=== PATIENT | male | born 1965 | race Caucasian/White ===

== ENCOUNTER 2019-01-13 12:33 | Observation (INO) | payer BC ==
[~2019-01-13] VITALS: Ht 165.1 cm; Wt 90.0 kg
[2019-01-13] MEDS ORDERED: morphine 4 MG/ML VIAL IV STA (12:50)
[2019-01-13] MEDS ORDERED: SOD CHLORIDE 0.9% 500 ML IV STA (12:50)
--- NOTE | 2019-01-13 12:58 | ERD ---
ER Documentation Chief Complaint Chief Complaint LOWER ABD PAIN X 2 DAYS. ABD FIRM DISTENDED. HPI 53-year-old male presenting with complaints of severe rectal pain in addition to lower abdominal pain. He states that he has been constipated for the past 2 days. 2 days ago he started treatment with a medication named Creon due to " problems with his intestines". Per his daughter, he usually has diarrhea. He states he has a pressure-like, bloating pain in his abdomen. However he has a throbbing pain in his rectum. His daughter gave him multiple laxatives today including magnesium citrate, Dulcolax, and bisacodyl with only worsening of his symptoms. Patient's pain is a 10 out of 10 at this time. He denies any rectal bleeding. No fevers or chills. No nausea, vomiting, chest pain, shortness of breath. ROS All systems reviewed and are negative except as per history of present illness. Medications Home Meds Reported Medications Vitamin B Complex* (Vitamin B Complex*) 1 Each Tablet, 1 TAB PO DAILY, TAB 01/13/19 Clopidogrel Bisulfate (Clopidogrel) 75 Mg Tablet, 75 MG PO DAILY, #30 TAB 01/13/19 Niacin (Niacin* ER) 500 Mg Tab.er.24h, 500 MG PO DAILY, TAB.SA 01/13/19 Carvedilol* (Carvedilol*) 6.25 Mg Tablet, 6.25 MG PO BID, #60 TAB 01/13/19 Ramipril (Ramipril) 2.5 Mg Capsule, 2.5 MG PO DAILY, CAP 01/13/19 Gemfibrozil* (Gemfibrozil*) 600 Mg Tablet, 600 MG PO BID, TAB 01/13/19 Folic Acid* (Folic Acid*) 1 Mg Tablet, 1 MG PO DAILY, TAB 01/13/19 Cyanocobalamin* (Vitamin B12*) 500 Mcg Tab, 500 MCG PO DAILY, TAB 01/13/19 Terazosin Hcl* (Terazosin Hcl*) 5 Mg Capsule, 5 MG PO HS, CAP 01/13/19 Evolocumab (Repatha Sureclick) 140 Mg/1 Ml Pen.injctr, 140 MG SQ EVERY TWO WEEKS DUE ON JANUARY 16-01/13/19 Icosapent Ethyl (VASCEPA) 1 Gm Capsule, 2 GM PO BID, CAP 01/13/19 Zqsqwz-Smabwjjq-Zxzvmro* (Creon * 24,000) 24,000 L-76,000-120,000 Unit Capsule., 1 CAP PO WITH MEALS, CAP 01/13/19 Discontinued Reported Medications Ergocalciferol (Vitamin D2) (VITAMIN D2) 50,000 Unit Capsule, 42730 UNIT PO ONCE A WEEK, CAP 01/13/19 Allergies Allergies: Coded Allergies: No Known Allergy (Unverified , 01/13/19) PMhx/Soc Hx Cardiac Disorders: Yes (Hypertension, CAD, [place]) Hx Miscellaneous Medical Probl: Yes Hx Alcohol Use: Yes Hx Substance Use: No Hx Tobacco Use: No Smoking Status: Former smoker FmHx Family History: No diabetes Physical Exam Vitals Vital Signs Date Temp Pulse Resp B/P (MAP) Pulse Ox O2 O2 Flow FiO2 Time Delivery Rate 01/13/19 97.7 68 18 114/81 Room Air 18:30 (92) 01/13/19 77 17 118/81 99 Room Air 17:37 (93) 01/13/19 98.2 78 16 134/86 99 12:42 (102) Physical Exam Const: No acute distress Head: Atraumatic Eyes: Normal Conjunctiva ENT: Normal External Ears, Nose and Mouth. Neck: Full range of motion. No meningismus. Resp: Clear to auscultation bilaterally Cardio: Regular rate and rhythm, no murmurs Abd: Soft, distended, mild left lower quadrant tenderness to deep palpation. No rebound or guarding. Hypoactive bowel sounds Rectal: No external hemorrhoids seen. No rectal bleeding. Unable to complete rectal exam secondary to severe rectal pain. No erythema or discharge noted. Brown stool in rectal vault. No palpable masses but exam was limited. Skin: No petechiae or rashes Back: No midline or flank tenderness Ext: No cyanosis, or edema Neur: Awake and alert Psych: Normal Mood and Affect Result Diagram: 01/13/19 1245 01/13/19 1245 Results 24 hrs Laboratory Tests Test 01/13/19 12:45 White Blood Count 12.9 10^3/ul Red Blood Count 5.08 10^6/ul Hemoglobin 16.7 g/dl Hematocrit 44.7 % Mean Corpuscular Volume 88.3 fl Mean Corpuscular Hemoglobin 33.0 pg Mean Corpuscular Hemoglobin Concent 37.4 g/dl Red Cell Distribution Width 11.5 % Platelet Count 203 10^3/UL Mean Platelet Volume 9.2 fl Immature Granulocytes % 0.500 % Neutrophils % 80.5 % Lymphocytes % 12.5 % Monocytes % 5.7 % Eosinophils % 0.5 % Basophils % 0.3 % Nucleated Red Blood Cells % 0.0 /100WBC Immature Granulocytes # 0.060 10^3/ul Neutrophils # 10.4 10^3/ul Lymphocytes # 1.6 10^3/ul Monocytes # 0.7 10^3/ul Eosinophils # 0.1 10^3/ul Basophils # 0.0 10^3/ul Nucleated Red Blood Cells # 0.0 10^3/ul Urine Color STRAW Urine Clarity CLEAR Urine pH 5.0 Urine Specific [place] 1.004 Urine Ketones NEGATIVE mg/dL Urine Nitrite NEGATIVE mg/dL Urine Bilirubin NEGATIVE mg/dL Urine Urobilinogen NEGATIVE mg/dL Urine Leukocyte Esterase NEGATIVE Radha/ul Urine Microscopic RBC 0 /HPF Urine Microscopic WBC 1 /HPF Urine Hemoglobin 1+ mg/dL Urine Glucose NEGATIVE mg/dL Urine Total Protein NEGATIVE mg/dl Sodium Level 137 mmol/L Potassium Level 3.8 mmol/L Chloride Level 103 mmol/L Carbon Dioxide Level 19 mmol/L Anion Gap 15 Blood Urea Nitrogen 10 mg/dl Creatinine 0.66 mg/dl Est Glomerular Filtrat Rate mL/min > 60 mL/min Glucose Level 142 mg/dl Calcium Level 9.9 mg/dl Total Bilirubin 0.9 mg/dl Direct Bilirubin 0.00 mg/dl Indirect Bilirubin 0.9 mg/dl Aspartate Amino Transf (AST/SGOT) 39 IU/L Alanine Aminotransferase (ALT/SGPT) 38 IU/L Alkaline Phosphatase 89 IU/L Total Protein 7.8 g/dl Albumin 4.6 g/dl Globulin 3.20 g/dl Albumin/Globulin Ratio 1.43 Current Medications Medications Dose Sig/Karl Start Time Status Last (Trade) Ordered Route PRN Stop Time Admin Dose Reason Admin Sodium 500 ml @ Q1H STAT 01/13/19 DC 01/13/19 Chloride 500 mls/hr IV 12:50 13:15 01/13/19 13:49 Morphine 6 mg ONCE STAT 01/13/19 DC 01/13/19 Sulfate IV 12:50 13:15 (morphine) 01/13/19 12:52 Ketorolac 15 mg ONCE STAT 01/13/19 DC 01/13/19 Tromethamine IV 13:34 13:39 (Toradol) 01/13/19 13:35 0.5 mg ONCE STAT 01/13/19 DC 01/13/19 Hydromorphone IV 13:34 13:39 HCl 01/13/19 13:35 (Dilaudid) Sodium 133 ml ONCE ONCE 01/13/19 DC 01/13/19 Biphosphate/ DC 15:30 15:24 Sodium 01/13/19 15:31 Phosphate (Fleet Enema) Lactulose 20 gm ONCE ONCE 01/13/19 DC 01/13/19 (Enulose) PO 17:30 17:36 01/13/19 17:31 Ondansetron 4 mg BRIDGE ORDER 01/13/19 HCl (Zofran PRN IV 19:00 Inj) NAUSEA/VOMITI 01/14/19 18:59 NG 650 mg ER BRIDGE 01/13/19 Acetaminophen PRN PO 19:00 (Tylenol .MILD PAIN 01/14/19 18:59 Tab) 1-3 OR TEMP IV Flush 3 ml PER 01/13/19 (NS 3 ml) PROTOCOL IV 19:00 Ondansetron 4 mg Q6H PRN 01/13/19 HCl (Zofran IV 19:00 Inj) NAUSEA/VOMITI NG 650 mg Q6H PRN 01/13/19 Acetaminophen PO .PAIN 1-3 19:00 (Tylenol OR TEMP Tab) 1 tab Q6H PRN 01/13/19 Acetaminophen PO .MOD PAIN 19:00 / 4-6 Hydrocodone Bitart ([place] (5/325)) Morphine 2 mg Q4H PRN 01/13/19 Sulfate IV .SEVERE 19:00 (morphine) PAIN 7-10 Docusate 100 mg Q12H PRN 01/13/19 Sodium PO 19:00 (Colace) .CONSTIPATION Magnesium 30 ml DAILY PRN 01/13/19 Hydroxide PO 19:00 (Milk Of Mag) .CONSTIPATION 40 mg DAILY@06 01/14/19 DC Pantoprazole IV 06:00 (Protonix 01/14/19 06:00 Iv) Sodium 1,000 ml @ [id number] IV 01/13/19 Chloride 75 mls/hr 18:57 Lorazepam 0.5 mg Q6H PRN 7/16/19 (Ativan) IV ANXIETY 19:00 Albuterol/ 3 ml Q4H RESP 01/13/19 Ipratropium THERAPY PRN 19:00 (Duoneb) HHN SHORTNESS OF BREATH Hydralazine 10 mg Q6H PRN 01/13/19 HCl IV ELEVATED 19:00 (Apresoline) BLOOD PRESSURE 1 tab Q5M PRN 01/13/19 Nitroglycerin SL ANGINA 19:00 (Nitroglyceri n (Sl Tab) 0.4 Mg) Famotidine 20 mg BID IV 01/13/19 (Pepcid Iv) 21:00 Procedures/MDM EMERGENT LABS AND DIAGNOSTIC STUDIES: Lab Results above were reviewed and interpreted by me. CBC: mild leukocytosis without left shift, likely stress response CMP: No evidence of clinically significant electrolyte abnormality, acidosis, renal failure, hypoglycemia, liver disease, or biliary obstruction Radiology Results as interpreted by Radiology below were reviewed by Angela Espino MD: CT abdomen and pelvis shows no acute abnormalities Initial Nursing notes reviewed. Previous Medical Records requested via the Electronic Health Record. EMERGENCY DEPARTMENT COURSE / MEDICAL DECISION MAKING: Patient is presenting with abdominal bloating, constipation, and rectal pain. Differential includes but is not limited to diverticulitis, proctitis, perianal abscess, bowel obstruction, colitis. Low suspicion for dissection or ischemic bowel. CT did not show any significant abnormalities. Labs also did not show any significant abnormalities. I suspect his constipation secondary to the new medication he has started, Creon. Patient was treated with a rectal enema without any relief. He did require multiple doses of narcotics for pain control. At this time, he does not feel well enough to go home. Patient will be admitted for intractable pain. Admitting doctor: Dr. Thorne Departure Diagnosis: Primary Impression: Abdominal pain Abdominal location: lower abdomen, unspecified Qualified Codes: R10.30 - Lower abdominal pain, unspecified Additional Impressions: Constipation Constipation type: unspecified constipation type Qualified Codes: K59.00 - Constipation, unspecified Rectal or anal pain Condition: Fair ELLEN ESPINO MD Jan 13, 2019 12:58
[2019-01-13] MEDS ORDERED: LIPA1CAP6 PO (13:28)
[2019-01-13] MEDS ORDERED: ICOS1CAP PO (13:30)
[2019-01-13] MEDS ORDERED: EVOL140P SQ (13:33)
[2019-01-13] MEDS ORDERED: TERA5CAP3 PO (13:33)
[2019-01-13] MEDS ORDERED: KETOROLAC 15 MG INJ IV STA (13:34)
[2019-01-13] MEDS ORDERED: HYDROmorphONE 0.5 MG/0.5 ML SYG IV STA (13:34)
[2019-01-13] MEDS ORDERED: ERGO500013 PO (13:37)
[2019-01-13] MEDS ORDERED: GEMF600T8 PO (13:38)
[2019-01-13] MEDS ORDERED: CYAN500T46 PO (13:38)
[2019-01-13] MEDS ORDERED: FOLI-49 PO (13:38)
[2019-01-13] MEDS ORDERED: NIAC500T92 PO (13:39)
[2019-01-13] MEDS ORDERED: RAMI2.5C36 PO (13:39)
[2019-01-13] MEDS ORDERED: CARV6.2579 PO (13:39)
[2019-01-13] MEDS ORDERED: CLOP75TA27 PO (13:40)
[2019-01-13] MEDS ORDERED: VIT1TABL46 PO (13:40)
[2019-01-13] MEDS ORDERED: NA PHOSPHATE/BIPHOS 133 ML ENEMA PR ONE (15:30)
[2019-01-13] MEDS ORDERED: LACTULOSE 30ML CUP PO ONE (17:30)
[2019-01-13] MEDS ORDERED: NITROGLYCERIN (SL) 0.4 MG TAB SL PRN (19:00)
[2019-01-13] MEDS ORDERED: ACETAMINOPHEN 325 MG TAB PO PRN ×2 (19:00)
[2019-01-13] MEDS ORDERED: ONDANSETRON 4 MG INJ IV PRN ×2 (19:00)
[2019-01-13] MEDS ORDERED: hydrALAzine 20 MG INJ IV PRN (19:00)
[2019-01-13] MEDS ORDERED: morphine 2 MG INJ IV PRN (19:00)
[2019-01-13] MEDS ORDERED: ALBUTEROL/IPRATROPIUM (NEB) 3 ML AMP HHN PRN (19:00)
[2019-01-13] MEDS ORDERED: LORAZEPAM 2 MG INJ IV PRN (19:00)
[2019-01-13] MEDS ORDERED: DOCUSATE SODIUM 100 MG CAP PO PRN (19:00)
[2019-01-13] MEDS ORDERED: MAGNESIUM HYDROXIDE 30ML CUP PO PRN (19:00)
[2019-01-13] MEDS ORDERED: NACL 0.9% 3 ML SYG IV SCH (19:00)
[2019-01-13] MEDS ORDERED: HYDROCODONE/APAP (5/325) TAB PO PRN (19:00)
[2019-01-13 21:19] VITALS: BP 132/84; PULSE 66; RESP 16
[2019-01-13] MEDS: FAMOTIDINE 20 MG INJ IV SCH (21:25)
[2019-01-13] MEDS: SOD CHLORIDE 0.45% 1,000 ML IV SCH (21:31)
[2019-01-13 22:20] VITALS: Ht 165.1 cm; Wt 90.0 kg
[2019-01-14 03:05] VITALS: BP 107/67; PULSE 62; RESP 16
[2019-01-14] MEDS ORDERED: PANTOPRAZOLE 40 MG INJ IV SCH (06:00)
--- NOTE | 2019-01-14 07:10 | HP ---
Date/Time of Note Date/Time of Note DATE: 01/13/19 TIME: 22:00 Assessment/Plan Lines/Catheters IV Catheter Type (from Nrsg): Peripheral IV Assessment/Plan Assessment/Plan 1. Abdominal pain/rectal pain: Likely secondary to constipation -Bowel regimen -Pain meds as needed 2. History of CAD/GA: Continue home meds 3. Hypertension: Continue home BP meds, adjust as needed 4. Possible history of pancreatitis: Patient was started on Creon 2 days ago Result Diagram: 01/14/19 0547 01/13/19 1245 Results 24hrs Laboratory Tests Test 01/13/19 12:45 01/13/19 20:34 01/14/19 05:47 White Blood Count 12.9 H 8.0 # Red Blood Count 5.08 4.75 Hemoglobin 16.7 15.6 Hematocrit 44.7 43.5 Mean Corpuscular Volume 88.3 91.6 Mean Corpuscular Hemoglobin 33.0 32.8 Mean Corpuscular Hemoglobin Concent 37.4 H 35.9 Red Cell Distribution Width 11.5 11.9 Platelet Count 203 170 Mean Platelet Volume 9.2 9.2 Immature Granulocytes % 0.500 H 0.400 Neutrophils % 80.5 H 68.8 Lymphocytes % 12.5 L 20.5 Monocytes % 5.7 7.7 Eosinophils % 0.5 2.0 Basophils % 0.3 0.6 Nucleated Red Blood Cells % 0.0 0.0 Immature Granulocytes # 0.060 H 0.030 Neutrophils # 10.4 H 5.5 Lymphocytes # 1.6 1.7 Monocytes # 0.7 0.6 Eosinophils # 0.1 0.2 Basophils # 0.0 0.1 Nucleated Red Blood Cells # 0.0 0.0 Urine Color STRAW Urine Clarity CLEAR Urine pH 5.0 Urine Specific [place] 1.004 Urine Ketones NEGATIVE Urine Nitrite NEGATIVE Urine Bilirubin NEGATIVE Urine Urobilinogen NEGATIVE Urine Leukocyte Esterase NEGATIVE Urine Microscopic RBC 0 Urine Microscopic WBC 1 Urine Hemoglobin 1+ H Urine Glucose NEGATIVE Urine Total Protein NEGATIVE Sodium Level 137 Potassium Level 3.8 Chloride Level 103 Carbon Dioxide Level 19 L Anion Gap 15 H Blood Urea Nitrogen 10 Creatinine 0.66 Est Glomerular Filtrat Rate mL/min > 60 Glucose Level 142 Calcium Level 9.9 Total Bilirubin 0.9 Direct Bilirubin 0.00 Indirect Bilirubin 0.9 Aspartate Amino Transf (AST/SGOT) 39 Alanine Aminotransferase (ALT/SGPT) 38 Alkaline Phosphatase 89 Total Protein 7.8 Albumin 4.6 Globulin 3.20 Albumin/Globulin Ratio 1.43 Free Thyroxine 1.26 Prothrombin Time 12.8 Prothrombin Time Ratio 1.0 INR International Normalized Ratio 0.95 Activated Partial Thromboplast Time 30.3 HPI/ROS Admit Date/Time Admit Date/Time Jan 13, 2019 at 21:03 Hx of Present Illness Patient is a 53-year-old male with a history of CAD, dyslipidemia, hypertension, possible pancreatitis who presents the ER complaining of abdominal pain, rectal pain and constipation. Symptoms been going on for the past 2 days. He said he was started on Creon 2 days ago and since then has been constipated. Patient usually have loose stools. CT abdomen/pelvis shows no acute findings like appendicitis, cholecystitis or diverticulitis. Seen however is a fecal filled colon without evidence of bowel obstruction or inflammation. Nonobstructing left kidney stone was also noted PMH/Family/Social Past Medical History Medications Current Medications Ondansetron HCl (Zofran Inj) 4 mg BRIDGE ORDER PRN IV NAUSEA/VOMITING; Start 01/13/19 at 19:00; Stop 01/14/19 at 18:59 Acetaminophen (Tylenol Tab) 650 mg ER BRIDGE PRN PO .MILD PAIN 1-3 OR TEMP; Start 01/13/19 at 19:00; Stop 01/14/19 at 18:59 IV Flush (NS 3 ml) 3 ml PER PROTOCOL IV ; Start 01/13/19 at 19:00 Ondansetron HCl (Zofran Inj) 4 mg Q6H PRN IV NAUSEA/VOMITING; Start 01/13/19 at 19:00 Acetaminophen (Tylenol Tab) 650 mg Q6H PRN PO .PAIN 1-3 OR TEMP Last a dministered on 01/14/19at 00:09; Admin Dose 650 MG; Start 01/13/19 at 19:00 Acetaminophen/ Hydrocodone Bitart ([place] (5/325)) 1 tab Q6H PRN PO .MOD PAIN 4- 6 Last administered on 01/13/19at 21:25; Admin Dose 1 TAB; Start 01/13/19 at 19:00 Morphine Sulfate (morphine) 2 mg Q4H PRN IV .SEVERE PAIN 7-10; Start 01/13/19 at 19:00 Docusate Sodium (Colace) 100 mg Q12H PRN PO .CONSTIPATION; Start 01/13/19 at 19:00 Magnesium Hydroxide (Milk Of Mag) 30 ml DAILY PRN PO .CONSTIPATION; Start 01/13/19 at 19:00 Sodium Chloride 1,000 ml @ 75 mls/hr [id number] IV Last administered on 01/13/19at 21:31; Admin Dose 75 MLS/HR; Start 01/13/19 at 18:57 Lorazepam (Ativan) 0.5 mg Q6H PRN IV ANXIETY; Start 01/13/19 at 19:00 Albuterol/ Ipratropium (Duoneb) 3 ml Q4H RESP THERAPY PRN HHN SHORTNESS OF BREATH; Start 01/13/19 at 19:00 Hydralazine HCl (Apresoline) 10 mg Q6H PRN IV ELEVATED BLOOD PRESSURE; Start 01/13/19 at 19:00 Nitroglycerin (Nitroglycerin (Sl Tab) 0.4 Mg) 1 tab Q5M PRN SL ANGINA; Start 01/13/19 at 19:00 Famotidine (Pepcid Iv) 20 mg BID IV Last administered on 01/13/19at 21:25; Admin Dose 20 MG; Start 01/13/19 at 21:00 Coded Allergies: No Known Allergy (Unverified , 01/13/19) Social History Smoking Status: Never smoker Exam/Review of Systems Vital Signs Vitals Vital Signs Date Temp Pulse Resp B/P (MAP) Pulse Ox O2 O2 Flow FiO2 Time Delivery Rate 01/14/19 98.1 62 16 107/67 96 03:05 (80) 01/13/19 Room Air 20:58 Intake and Output 01/13/19 01/13/19 01/14/19 1515:00 23:00 07:00 IntakeIntake Total 560 ml BalanceBalance 560 ml AMARA ESCOBEDO MD Jan 14, 2019 07:10
[2019-01-14 07:42] VITALS: BP 112/72; PULSE 63; RESP 16
[2019-01-14] MEDS: FAMOTIDINE 20 MG INJ IV SCH (08:05)
[2019-01-14] MEDS: SOD CHLORIDE 0.45% 1,000 ML IV SCH ×2 (08:06→11:08)
--- NOTE | 2019-01-14 10:15 | CONS ---
Assessment/Plan Assessment/Plan Hospital Course (Demo Recall) Summary Assessment and Plan: Assessment: Rectal pain- likely 2/2 to constipation- improved after BM Dyslipidemia- on multiple medication at home HTN H/o [place] Query h/o pancreatis- recently started on Creon TID History of colonoscopy 2 years ago Plan: Start MiraLAX p.o. BID- continue MiraLAx after discharge after discharge Colonoscopy offered- pt declined- pt states he wants to go home today Advance diet as tolerated D/c planning per hospitalist- Pt to f/u with his GI after discharge- consider reducing Creon vs stopping- re-evaluate need for repeat colonoscopy Patient seen in collaboration with Dr. Cortes CC: LEENA CORTES MD ; Consultation Date/Type/Reason Admit Date/Time Jan 13, 2019 at 21:03 Date of Consultation: Jan 14, 2019 Type of Consult Gastroenterology Reason for Consultation Rectal pain, constipation Date/Time of Note DATE: 01/14/19 TIME: 10:05 Hx of Present Illness This is a 53-year-old male with past medical history of hypertension, [place], severe dyslipidemia, questionable history of pancreatitis who was recently started on Creon and subsequently developed severe constipation. Patient began to complain of rectal pain three days after started Creon TID, which became progressively worse, he presented to the ED for evaluation. Initial work-up showed mild leukocytosis of 12.9 has resolved today normal hemoglobin/hematocrit, normal INR normal LFTs with significant elevated triglycerides of 874, cholesterol is 211, HDL 26. Patient states his triglyceride levels actually much improved with previous levels were noted to be closer to 4000 he is on several medications to help bring down triglyceride. Additionally imaging was obtained a CT abdomen pelvis without contrast reveals fecal filled colon. No evidence of bowel obstruction or inflammation. There is no appendicitis. There is diverticulosis without diverticulitis, atherosclerotic disease is present, there is a nonobstructing left mid kidney renal stone, enlarged prostate. He was recently started on Creon about 3 days ago and states since then he has not been able to have a bowel movement. His baseline is normally loose stools. He previously had an colonoscopy about 2 years ago per patient negative. Since hospitalization he was placed on bowel program and had 3 bowel movements this morning he states rectal pain has much improved he feels very well. Review of Systems: A 12 system, review was conducted and is negative except as noted in the HPI or here. Past Medical History Home Meds Reported Medications Vitamin B Complex* (Vitamin B Complex*) 1 Each Tablet, 1 TAB PO DAILY, TAB 01/13/19 Clopidogrel Bisulfate (Clopidogrel) 75 Mg Tablet, 75 MG PO DAILY, #30 TAB 01/13/19 Niacin (Niacin* ER) 500 Mg Tab.er.24h, 500 MG PO DAILY, TAB.SA 01/13/19 Carvedilol* (Carvedilol*) 6.25 Mg Tablet, 6.25 MG PO BID, #60 TAB 01/13/19 Ramipril (Ramipril) 2.5 Mg Capsule, 2.5 MG PO DAILY, CAP 01/13/19 Gemfibrozil* (Gemfibrozil*) 600 Mg Tablet, 600 MG PO BID, TAB 01/13/19 Folic Acid* (Folic Acid*) 1 Mg Tablet, 1 MG PO DAILY, TAB 01/13/19 Cyanocobalamin* (Vitamin B12*) 500 Mcg Tab, 500 MCG PO DAILY, TAB 01/13/19 Terazosin Hcl* (Terazosin Hcl*) 5 Mg Capsule, 5 MG PO HS, CAP 01/13/19 Evolocumab (Repatha Sureclick) 140 Mg/1 Ml Pen.injctr, 140 MG SQ EVERY TWO WEEKS DUE ON JANUARY 16-01/13/19 Icosapent Ethyl (VASCEPA) 1 Gm Capsule, 2 GM PO BID, CAP 01/13/19 Ryudhy-Uvxpknnr-Tjeotxv* (Nilda DR* 24,000) 24,000 L-76,000-120,000 Unit Capsule., 1 CAP PO WITH MEALS, CAP 01/13/19 Discontinued Reported Medications Ergocalciferol (Vitamin D2) (VITAMIN D2) 50,000 Unit Capsule, 44433 UNIT PO ONCE A WEEK, CAP 01/13/19 Medications Current Medications Ondansetron HCl (Zofran Inj) 4 mg BRIDGE ORDER PRN IV NAUSEA/VOMITING; Start 01/13/19 at 19:00; Stop 01/14/19 at 18:59 Acetaminophen (Tylenol Tab) 650 mg ER BRIDGE PRN PO .MILD PAIN 1-3 OR TEMP; Start 01/13/19 at 19:00; Stop 01/14/19 at 18:59 IV Flush (NS 3 ml) 3 ml PER PROTOCOL IV ; Start 01/13/19 at 19:00 Ondansetron HCl (Zofran Inj) 4 mg Q6H PRN IV NAUSEA/VOMITING; Start 01/13/19 at 19:00 Acetaminophen (Tylenol Tab) 650 mg Q6H PRN PO .PAIN 1-3 OR TEMP Last administered on 01/14/19at 00:09; Admin Dose 650 MG; Start 01/13/19 at 19:00 Acetaminophen/ Hydrocodone Bitart ([place] (5/325)) 1 tab Q6H PRN PO .MOD PAIN 4- 6 Last administered on 01/13/19at 21:25; Admin Dose 1 TAB; Start 01/13/19 at 19:00 Morphine Sulfate (morphine) 2 mg Q4H PRN IV .SEVERE PAIN 7-10; Start 01/13/19 at 19:00 Docusate Sodium (Colace) 100 mg Q12H PRN PO .CONSTIPATION; Start 01/13/19 at 19:00 Magnesium Hydroxide (Milk Of Mag) 30 ml DAILY PRN PO .CONSTIPATION; Start 01/13/19 at 19:00 Sodium Chloride 1,000 ml @ 75 mls/hr [id number] IV Last administered on 01/13/19at 21:31; Admin Dose 75 MLS/HR; Start 01/13/19 at 18:57 Lorazepam (Ativan) 0.5 mg Q6H PRN IV ANXIETY; Start 01/13/19 at 19:00 Albuterol/ Ipratropium (Duoneb) 3 ml Q4H RESP THERAPY PRN HHN SHORTNESS OF BREATH; Start 01/13/19 at 19:00 Hydralazine HCl (Apresoline) 10 mg Q6H PRN IV ELEVATED BLOOD PRESSURE; Start 01/13/19 at 19:00 Nitroglycerin (Nitroglycerin (Sl Tab) 0.4 Mg) 1 tab Q5M PRN SL ANGINA; Start 01/13/19 at 19:00 Famotidine (Pepcid Iv) 20 mg BID IV Last administered on 01/14/19at 08:05; Admin Dose 20 MG; Start 01/13/19 at 21:00 Allergies: Coded Allergies: No Known Allergy (Unverified , 01/13/19) Social History Smoking Status: Never smoker Exam/Review of Systems Exam Vitals Vital Signs Date Temp Pulse Resp B/P (MAP) Pulse Ox O2 O2 Flow FiO2 Time Delivery Rate 01/14/19 98.1 63 16 112/72 96 07:42 (85) 01/13/19 Room Air 20:58 Intake and Output 01/13/19 01/13/19 01/14/19 1515:00 23:00 07:00 IntakeIntake Total 560 ml BalanceBalance 560 ml Exam PHYSICAL EXAMINATION: GENERAL: Well developed, well nourished, alert & oriented x 3, in no acute distress SKIN: No lesions HEAD: Normocephalic, atraumatic, no tenderness. EYES: Pupils equal reactive to light and accommodation, full extraocular movements, sclera clear, non-icteric, no discharge. EARS/NOSE AND THROAT: Ears normal, nose normal, oropharynx normal, oral membranes well hydrated without lesions. NECK: Supple, no masses CHEST: Inspection within normal limits. CARDIOVASCULAR: Heart: Regular rate and rhythm RESPIRATORY: Lungs clear to auscultation. GASTROINTESTINAL AND LIVER: Abdomen: Soft, non tenderness, non-distended, no hernias, no masses, no organomegaly, no ascites, no guarding, no rebound tenderness, normoactive bowel sounds. Rectal: Deferred. EXTREMITIES: No cyanosis, clubbing or edema. Results Result Diagram: 01/14/19 0547 01/14/19 0547 Results 24hrs Laboratory Tests Test 01/13/19 12:45 01/13/19 20:34 01/14/19 05:47 White Blood Count 12.9 H 8.0 # Red Blood Count 5.08 4.75 Hemoglobin 16.7 15.6 Hematocrit 44.7 43.5 Mean Corpuscular Volume 88.3 91.6 Mean Corpuscular Hemoglobin 33.0 32.8 Mean Corpuscular Hemoglobin Concent 37.4 H 35.9 Red Cell Distribution Width 11.5 11.9 Platelet Count 203 170 Mean Platelet Volume 9.2 9.2 Immature Granulocytes % 0.500 H 0.400 Neutrophils % 80.5 H 68.8 Lymphocytes % 12.5 L 20.5 Monocytes % 5.7 7.7 Eosinophils % 0.5 2.0 Basophils % 0.3 0.6 Nucleated Red Blood Cells % 0.0 0.0 Immature Granulocytes # 0.060 H 0.030 Neutrophils # 10.4 H 5.5 Lymphocytes # 1.6 1.7 Monocytes # 0.7 0.6 Eosinophils # 0.1 0.2 Basophils # 0.0 0.1 Nucleated Red Blood Cells # 0.0 0.0 Urine Color STRAW Urine Clarity CLEAR Urine pH 5.0 Urine Specific [place] 1.004 Urine Ketones NEGATIVE Urine Nitrite NEGATIVE Urine Bilirubin NEGATIVE Urine Urobilinogen NEGATIVE Urine Leukocyte Esterase NEGATIVE Urine Microscopic RBC 0 Urine Microscopic WBC 1 Urine Hemoglobin 1+ H Urine Glucose NEGATIVE Urine Total Protein NEGATIVE Sodium Level 137 142 Potassium Level 3.8 3.7 Chloride Level 103 104 Carbon Dioxide Level 19 L 29 # Anion Gap 15 H 9 # Blood Urea Nitrogen 10 10 Creatinine 0.66 0.75 Est Glomerular Filtrat Rate mL/min > 60 > 60 Glucose Level 142 133 Calcium Level 9.9 9.1 Total Bilirubin 0.9 Direct Bilirubin 0.00 Indirect Bilirubin 0.9 Aspartate Amino Transf (AST/SGOT) 39 Alanine Aminotransferase (ALT/SGPT) 38 Alkaline Phosphatase 89 Total Protein 7.8 Albumin 4.6 Globulin 3.20 Albumin/Globulin Ratio 1.43 Free Thyroxine 1.26 Prothrombin Time 12.8 Prothrombin Time Ratio 1.0 INR International Normalized Ratio 0.95 Activated Partial Thromboplast Time 30.3 Hemoglobin A1c 5.5 Phosphorus Level 3.4 Magnesium Level 2.3 Triglycerides Level 874 H Cholesterol Level 211 H LDL Cholesterol, Calculated 10 HDL Cholesterol 26 L Cholesterol/HDL Ratio 8.1 Thyroid Stimulating Hormone (TSH) 2.170 Medications Medication Current Medications Ondansetron HCl (Zofran Inj) 4 mg BRIDGE ORDER PRN IV NAUSEA/VOMITING; Start 01/13/19 at 19:00; Stop 01/14/19 at 18:59 Acetaminophen (Tylenol Tab) 650 mg ER BRIDGE PRN PO .MILD PAIN 1-3 OR TEMP; Start 01/13/19 at 19:00; Stop 01/14/19 at 18:59 IV Flush (NS 3 ml) 3 ml PER PROTOCOL IV ; Start 01/13/19 at 19:00 Ondansetron HCl (Zofran Inj) 4 mg Q6H PRN IV NAUSEA/VOMITING; Start 01/13/19 at 19:00 Acetaminophen (Tylenol Tab) 650 mg Q6H PRN PO .PAIN 1-3 OR TEMP Last administered on 01/14/19at 00:09; Admin Dose 650 MG; Start 01/13/19 at 19:00 Acetaminophen/ Hydrocodone Bitart ([place] (5/325)) 1 tab Q6H PRN PO .MOD PAIN 4- 6 Last administered on 01/13/19at 21:25; Admin Dose 1 TAB; Start 01/13/19 at 19:00 Morphine Sulfate (morphine) 2 mg Q4H PRN IV .SEVERE PAIN 7-10; Start 01/13/19 at 19:00 Docusate Sodium (Colace) 100 mg Q12H PRN PO .CONSTIPATION; Start 01/13/19 at 19:00 Magnesium Hydroxide (Milk Of Mag) 30 ml DAILY PRN PO .CONSTIPATION; Start 01/13/19 at 19:00 Sodium Chloride 1,000 ml @ 75 mls/hr [id number] IV Last administered on 01/13/19at 21:31; Admin Dose 75 MLS/HR; Start 01/13/19 at 18:57 Lorazepam (Ativan) 0.5 mg Q6H PRN IV ANXIETY; Start 01/13/19 at 19:00 Albuterol/ Ipratropium (Duoneb) 3 ml Q4H RESP THERAPY PRN HHN SHORTNESS OF BREATH; Start 01/13/19 at 19:00 Hydralazine HCl (Apresoline) 10 mg Q6H PRN IV ELEVATED BLOOD PRESSURE; Start 01/13/19 at 19:00 Nitroglycerin (Nitroglycerin (Sl Tab) 0.4 Mg) 1 tab Q5M PRN SL ANGINA; Start 01/13/19 at 19:00 Famotidine (Pepcid Iv) 20 mg BID IV Last administered on 01/14/19at 08:05; Admin Dose 20 MG; Start 01/13/19 at 21:00 FRENY DURANT Jan 14, 2019 10:15
[2019-01-14] MEDS ORDERED: POLYETHYLENE GLYCOL 17 GM PACKET PO SCH (10:30)
[2019-01-14 14:31] VITALS: BP 136/82; PULSE 73; RESP 16
--- NOTE | 2019-01-14 15:11 | DS ---
Date/Time of Note Date/Time of Note DATE: 01/14/19 TIME: 15:11 Discharge Summary Admission/Discharge Info Admit Date/Time Jan 13, 2019 at 21:03 Discharge Date/Time Discharge Diagnosis 1. Rectal pain- likely 2/2 to constipation- improved after BM 2. Dyslipidemia- on multiple medication at home 3. HTN, controlled 4. CAD with H/o MT, stable 5. Query h/o pancreatis- recently started on Creon TID, follow up with GI Patient Condition: Stable Hospital Course This is a 53-year-old male with past medical history of hypertension, MT, severe dyslipidemia, questionable history of pancreatitis who was recently started on Creon and subsequently developed severe constipation. Patient began to complain of rectal pain three days after started Creon TID, which became progressively worse, he presented to the ED for evaluation. Initial work-up showed mild leukocytosis of 12.9 has resolved today normal hemoglobin/hematocrit, normal INR normal LFTs with significant elevated triglycerides of 874, cholesterol is 211, HDL 26. Patient states his triglyceride levels actually much improved with previous levels were noted to be closer to 4000 he is on several medications to help bring down triglyceride. Additionally imaging was obtained a CT abdomen pelvis without contrast reveals fecal filled colon. No evidence of bowel obstruction or inflammation. There is no appendicitis. There is diverticulosis without diverticulitis, atherosclerotic disease is present, there is a nonobstructing left mid kidney renal stone, enlarged prostate. He was recently started on Creon about 3 days ago and states since then he has not been able to have a bowel movement. His baseline is normally loose stools. He previously had an colonoscopy about 2 years ago per patient negative. Since hospitalization he was placed on bowel program and had 3 bowel movements this morning he states rectal pain has much improved he feels very well. Patient tolerates diet. Patient had colonoscopy 2 years ago. GI recommends repeat colonoscopy that patient declines. Patient is recommended follow up with his GI to decide about Creon. Home Meds Reported Medications Vitamin B Complex* (Vitamin B Complex*) 1 Each Tablet, 1 TAB PO DAILY, TAB 01/13/19 Clopidogrel Bisulfate (Clopidogrel) 75 Mg Tablet, 75 MG PO DAILY, #30 TAB 01/13/19 Niacin (Niacin* ER) 500 Mg Tab.er.24h, 500 MG PO DAILY, TAB.SA 01/13/19 Carvedilol* (Carvedilol*) 6.25 Mg Tablet, 6.25 MG PO BID, #60 TAB 01/13/19 Ramipril (Ramipril) 2.5 Mg Capsule, 2.5 MG PO DAILY, CAP 01/13/19 Gemfibrozil* (Gemfibrozil*) 600 Mg Tablet, 600 MG PO BID, TAB 01/13/19 Folic Acid* (Folic Acid*) 1 Mg Tablet, 1 MG PO DAILY, TAB 01/13/19 Cyanocobalamin* (Vitamin B12*) 500 Mcg Tab, 500 MCG PO DAILY, TAB 01/13/19 Terazosin Hcl* (Terazosin Hcl*) 5 Mg Capsule, 5 MG PO HS, CAP 01/13/19 Evolocumab (Repatha Sureclick) 140 Mg/1 Ml Pen.injctr, 140 MG SQ EVERY TWO WEEKS DUE ON JANUARY 16-01/13/19 Icosapent Ethyl (VASCEPA) 1 Gm Capsule, 2 GM PO BID, CAP 01/13/19 Mtysuh-Tuikkzjr-Eljpjye* (Nilda DR* 24,000) 24,000 L-76,000-120,000 Unit Capsule., 1 CAP PO WITH MEALS, CAP 01/13/19 Discontinued Reported Medications Ergocalciferol (Vitamin D2) (VITAMIN D2) 50,000 Unit Capsule, 47547 UNIT PO ONCE A WEEK, CAP 01/13/19 Follow-up Plan CP and GI in one week Primary Care Provider Christy Perez DO Pending Labs Laboratory Tests Test 01/13/19 20:34 01/14/19 05:47 Prothrombin Time 12.8 Sec (11.9-14.9) Prothrombin Time Ratio 1.0 INR International 0.95 Normalized Ratio Activated Partial Thromboplast 30.3 Sec (23.0-35.0) Time White Blood Count 8.0 10^3/ul (4.8-10.8) Red Blood Count 4.75 10^6/ul (4.70-6.10) Hemoglobin 15.6 g/dl (14.0-18.0) Hematocrit 43.5 % (42.0-52.0) Mean Corpuscular Volume 91.6 fl (82.0-101.0) Mean Corpuscular Hemoglobin 32.8 pg (29.0-33.0) Mean Corpuscular 35.9 g/dl (32.0-37.0) Hemoglobin Concent Red Cell Distribution Width 11.9 % (11.5-14.5) Platelet Count 170 10^3/UL (140-415) Mean Platelet Volume 9.2 fl (7.4-10.4) Immature Granulocytes % 0.400 % (0.001-0.429) Neutrophils % 68.8 % (39.0-77.0) Lymphocytes % 20.5 % (15.0-51.0) Monocytes % 7.7 % (0.0-11.0) Eosinophils % 2.0 % (0.0-7.0) Basophils % 0.6 % (0.0-2.0) Nucleated Red Blood Cells % 0.0 /100WBC (0.0-0.0) Immature Granulocytes # 0.030 10^3/ul (0.0-0.031) Neutrophils # 5.5 10^3/ul (1.6-7.5) Lymphocytes # 1.7 10^3/ul (0.8-2.9) Monocytes # 0.6 10^3/ul (0.3-0.9) Eosinophils # 0.2 10^3/ul (0.0-0.5) Basophils # 0.1 10^3/ul (0.0-0.1) Nucleated Red Blood Cells # 0.0 10^3/ul (0.0-0.0) Sodium Level 142 mmol/L (135-144) Potassium Level 3.7 mmol/L (3.5-5.1) Chloride Level 104 mmol/L (97-110) Carbon Dioxide Level 29 mmol/L (21-31) Anion Gap 9 (5-13) Blood Urea Nitrogen 10 mg/dl (7-20) Creatinine 0.75 mg/dl (0.61-1.24) Est Glomerular Filtrat > 60 mL/min (>60) Rate mL/min Glucose Level 133 mg/dl (70-220) Hemoglobin A1c 5.5 % (0-5.9) Calcium Level 9.1 mg/dl (8.4-10.2) Phosphorus Level 3.4 mg/dl (2.5-4.9) Magnesium Level 2.3 mg/dl (1.7-2.5) Triglycerides Level 874 mg/dl (0-149) Cholesterol Level 211 mg/dl (100-200) LDL Cholesterol, Calculated 10 mg/dl HDL Cholesterol 26 mg/dl (28-71) Cholesterol/HDL Ratio 8.1 RATIO Thyroid Stimulating 2.170 MIU/L (0.465-4.680) Hormone (TSH) MARA WARREN MD Jan 14, 2019 15:11
== END 2019-01-14 17:30 | disposition home or self-care (01) ==
LOC: E/R 12:33 → PP2 21:03
PROVIDERS: ADMIT Internal Medicine; ATTEND Internal Medicine
DX: K59.00 Constipation, unspecified (principal); K62.89 Other specified diseases of anus and rectum; E78.5 Hyperlipidemia, unspecified; I10 Essential (primary) hypertension; I25.10 Atherosclerotic heart disease of native coronary artery without angina pectoris; I25.2 Old myocardial infarction; Z87.891 Personal history of nicotine dependence
CPT/HCPCS: 36415; 74176; 80048; 80053; 80061; 81001; 83036; 83735; 84100; 84439; 84443; 85025; 85610; 85730; 96374; 96375; 97161; J1170; J1885; J2270; J7040; Z7500; Z7502; Z7610; G0378